=== PATIENT | male | born 2000 | race Caucasian/White ===

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

== ENCOUNTER 2021-01-27 08:08 | Day surgery (SDC) | payer BC, OTHER, SELFPAY ==
[2021-01-21 10:25] VITALS: BMI 17.9
[2021-01-27] VITALS (9 sets, daily range): BP systolic 115–121; BP diastolic 52–63; PULSE 57–74; RESP 16–18; TEMP 36.8–38; O2SAT 95
--- NOTE | 2021-01-27 09:05 | HMH.ANESCL ---
[facility] Anesthesia Checklist - Structural Data Admitted From: Home Planned Operative Procedure/s: dental Consent for Planned Operative Procedure(s) Verified: Yes - Airway Assessment C-Spine Mobility Assessed: Yes TMJ Mobility Assessed: Yes Dentition: Poor Dentition - Neurological Assessment Level of Consciousness: Awake, Alert, Appropriate - Anesthesia Plan Anesthesia Risk discussed: Yes Anesthesia Plan: Verified ASA Class: III Anesthesia Type: General [facility] History I have reviewed the patient's past medical history: Yes (autism) Medical History: Denies:: Cancer, Diabetes Mellitus Type 1, Diabetes Mellitus Type 2, Internal Pacemaker, MRSA *Have you ever received a pneumonia vaccine?: No *Have you received a flu vaccine this season?: No Anesthesia experience/problems:: none Laterality Cases: Bilateral: Other Other Surgeries: No: Pacemaker Amputation: No Fractures: No - *Social History Last grade of school completed: None Smoking Status: Never smoker Alcohol Intake: never Substance Use Type: denies use *Occupational Status:: disabled Housing: house Household Members: family *Travel in the last 8 weeks: None Family Hx:: Unable to obtain
[2021-01-27 09:44] LABS: Coronavirus 19 IgG Antibody Positive (Negative); Coronavirus 19 IgM Antibody Negative (Negative)
--- NOTE | 2021-01-27 12:48 | P.PN_ITS ---
[facility] Anesthesia Record Part I Intake, IV Amount: 1,000 Estimated blood loss (mL): 0 Urine output (mL): 0 Blood Pressure: 120/61 SaO2: 95 Pulse Rate: 70 Respiratory Rate: 16 Temperature: 98.3 F Patient is:: Drowsy, Stable Stable to PACU at:: 12:40
--- NOTE | 2021-01-27 15:26 | P.PCN_ITS ---
Date of procedure: 01/27/21 Date of : 89 Pre-op Diagnosis:: dental decay Post-op diagnosis:: other (restored dental decay) Procedure performed:: The 20, M patient was transported to the [facility] OR pre operative holding room per his mother. In the holding room, an IV was started. The patient was then transported to the operating room where Issac was nasotracheal intubated. Anesthesia was induced and maintained. The patient was draped in the usual manner. 18 intraoral x-rays were taken. The throat was suctioned free of debris. One single moist throat pack was placed in the posterior oral pharynx. A complete intra-oral exam and review of the complete set of x-rays was completed. A Prophy was performed as well. The patient was found to have multiple areas of decay. #12-MOD surfaces, #13-MOD surfaces, #15-MOL surfaces, #28- surfaces, #18-MO surfaces, #19-MOD surfaces, #4-MOD surfaces, #2-MOL surfaces, #3-MODL surfaces, #14-MODL surfaces, #30-MODB surfaces, #31-MODB surfaces. All fillings were restored with B1 white resin flowable and composite material. Checked occlusion and adjusted bite. The patient was given 4 capules, 144mg of Octacaine with Epinephrine 1:100,000 which was 0.3mg for postoperative pain control. Estimated blood loss was nil. The patient tolerated all surgical procedures well and there were no surgical complications. The throat was irrigated and suctioned free of debris. The throat pack was removed. The patient was extubated without complications and taken to the postoperative anesthetic recovery room in satisfactory condition. Surgeon:: Natalya Anthony DMD Waste Disposal Plant Operator(s):: Farrah Reyna HEADING PINNER:: Rodrigo Cleveland Anesthesia: GETA Estimated blood loss (mL): 0 Operative note:: same as procedure performed Disposition: PACU Specimens:: 0 Complications:: none
--- NOTE | 2021-01-28 08:02 | HMH.ANESII ---
[facility] Anesthesia Record Part II Discharge Time: 13:10 Destination: Surgical Day Care (OP Surgery) PACU nurse assessment reviewed?: Yes Patient Condition:: Good Anesthesia Complications:: None Swallowing reflex intact?: Yes Cyanosis?: No Blood Pressure: 118/56 Pulse Rate: 65 Temperature: 98.6 F Mental Status: Alert & Oriented (baseline) Pain level:: 0 Nausea and/or vomitting:: None Intake, IV Amount: 0
[2021-01-28 08:03] VITALS: BP 118/56; PULSE 65; TEMP 37
== END 2021-01-27 13:40 | disposition home or self-care (01) ==
LOC: OR 08:10
PROVIDERS: PCP Family Medicine; Visit Provider Dentist General Practice
PROC: (CPT 41899; principal; 2021-01-27 09:45)
DX: K02.9 Dental caries, unspecified (principal); F43.0 Acute stress reaction; F84.0 Autistic disorder
CPT/HCPCS: 41899; D2160; D2161; D2150; 86328; J2405; J2710

== ENCOUNTER 2025-02-26 08:25 | Day surgery (SDC) | payer OTHER, SELFPAY ==
[2025-02-24 13:06] VITALS: BMI 17.7
[2025-02-26] VITALS (7 sets, daily range): BP systolic 112–122; BP diastolic 71–78; PULSE 64–72; RESP 14–18; TEMP 36.4–38; O2SAT 96–99
--- NOTE | 2025-02-26 09:38 | P.PNANES_ITS ---
[facility] Disclaimer: The information contained in this section may have been updated after the patient was seen, as this information can be updated by other users. Medical History (Updated 02/24/25 @ 13:02 by Amber Acharya RN) Autism Surgical History (Updated 02/24/25 @ 13:05 by Amber Acharya RN) History of dental surgery History of placement of ear tubes Family History (Updated 02/24/25 @ 13:05 by Amber Acharya RN) Other Adopted Social History Smoking Status: Never smoker second hand exposure: No alcohol intake: never substance use type: denies use current occupational status: disabled Travel in the last 8 weeks?: None household members: family housing: house current occupational exposures/hazards: No caffeine: No Have you lived/traveled outside US in past 30 days?: No Contact w/someone who lives/traveled outside US past 30 days?: No Exposure to someone with infectious disease in past 14 days?: No Do you have a fever (greater than 100.4 F or 38 C)?: No Have you tested positive for COVID-19?: No Exposed to someone with COVID-19 in past 14 days?: No Do you have a sore throat?: No Do you have a cough?: No Do you have any weakness?: No Do you have any diarrhea?: No Are you experiencing any unusual bleeding?: No Do you have any muscle aches/pain?: No Do you have any abdominal pain?: No Are you experiencing loss of taste or smell?: No [facility] Anesthesia Checklist Patient Identification Patient Identification: Arm Band Structural Data Admitted From: Home Planned Operative Procedure/s: Dental- Root Canal + Bridge Prep Consent for Planned Operative Procedure(s) Verified: Yes Verified Documents: Surgical Consent NPO Status Verified Time NPO: 00:00 Additional verifications Anesthesia Reactions: No Hx Blood Transfusions: No Blood Transfusion Reaction: No Airway Assessment Mallampati Score:: Class II C-Spine Mobility Assessed: Yes TMJ Mobility Assessed: Yes Dentition: Good Dentition Neurological Assessment Level of Consciousness: Awake, Alert and Follows Commands Anesthesia Plan Anesthesia Risk discussed: Yes Anesthesia Plan: Verified ASA Class: III Anesthesia Type: General
--- NOTE | 2025-02-26 13:56 | EXP.ANES.I ---
[facility] Anesthesia Record Part I Anesthesia Record I Intake, IV Amount: 900 Hydration: Adequate Estimated blood loss (mL): 0 Urine output (mL): 0 Blood Products used (#): none Blood Pressure: 122/71 SaO2: 99 Pulse Rate: 70 Airway Patency: Patent Respiratory Rate: 14 Temperature: 97.5 F Patient is:: Drowsy and Stable Stable to PACU at:: 01:32
--- NOTE | 2025-02-26 13:59 | EXP.ANES.I ---
[facility] Anesthesia Record Part I Anesthesia Record I Intake, IV Amount: 99 Hydration: Adequate Estimated blood loss (mL): 0 Urine output (mL): 0 Blood Products used (#): none Blood Pressure: 122/71 SaO2: 99 Pulse Rate: 70 Airway Patency: Patent Respiratory Rate: 14 Temperature: 97.5 F Patient is:: Drowsy and Stable Stable to PACU at:: 13:52
--- NOTE | 2025-02-26 14:22 | PC.NURSE ---
parents requesting no vital signs to be taken, pt becomes aggitated with blood pressure cuff and pulse ox. pt alert, no s/s of distress, skin pink, warm, dry.
--- NOTE | 2025-02-27 07:47 | EXP.ANES.II ---
[facility] Anesthesia Record Part II Anesthesia Record Part II Discharge Time: 14:22 Destination: Surgical Day Care (OP Surgery) PACU nurse assessment reviewed?: Yes Patient Condition:: Good Anesthesia Complications:: None Swallowing reflex intact?: Yes Airway Patency: Patent Cyanosis?: No Blood Pressure: 117/71 SaO2: 96 Respiratory Rate: 18 Pulse Rate: 69 Temperature: 97.5 F Mental Status: Alert & Oriented Pain level:: 0 Nausea and/or vomitting:: None Intake, IV Amount: 0 Hydration: Adequate
[2025-02-27 07:48] VITALS: BP 117/71; PULSE 69; RESP 18; TEMP 36.4; O2SAT 96
--- NOTE | 2025-02-27 11:44 | P.PCN_ITS ---
Operative Note Date of procedure: 02/26/25 Date of : 89 Pre-op Diagnosis:: #3 tooth periapical radiolueceny and abcess in need of endodontic treatment Post-op diagnosis:: same Procedure performed:: 24 y/o pt presents to [facility] OR for treatment Mx: Dr. Gonzales PCP, no meds, NKDA, PT has autism Procedure: The patient was transported to the [facility] per his mother and father. In the holding room an IV was began. The patient was transported to the operating room where he was nasotracheal intubated. Anesthesia was induced and maintained throughout the procedure without complications; See anesthesia records. The patient was draped in the usual manner, Full mouth digital X-rays were then taken. The throat was suctioned clear and one moist throat pack was placed in the posterior oral pharynx. *#3 RCT, core and crown prep #3 tooth with a raghav apical abscess has endodontic root canal treatment completed today with working lengths as follows palatal root 23mm working length and filled with size 40 cuco percha, Mesial buccal and distal buccal canals has 21mm working lengths and filled with size 35 and BC Sealer was used on the cuco percha points. irrigation was Sodium Hyperchlorite followed by an EDTA endo solution. Then #3 had a core build-up done using etch, tolbert and A2 filtek resin, then #3 tooth had a crown prep completed and an impression done to fabricate a lab crown, then a temporary crown was made and cemented with temporary cement (Temp Tolbert). *Bridge prep #28-#30; #28- abutment, #30-pontic, #31-abutment #28 and #30 were prepped and impressions taken for a three unit bridge to be fabricated in order to restore this pts occlusion on the lower right quadrant as requested by pts mother, A temporary bridge #28-#30 was also cemented today using Temp Tolbert. *Prophy Prophylactic cleaning was completed today using cavitron throughout the entire mouth followed by hand scales. All x-rays and the mouth were examined for any further problems, no further decay or abscesses were detected and all old fillings were in good condition The pt tolerated all surgical procedures well throat pack was removed. Tx per Dr. Anthony completed in the [facility] Anesthesiologist: Benjamin Puri Surgeon:: Natalya Anthony DMD Engineer System Administrator(s):: Elyssa Ivy PRODUCTIVITY ENGINEER:: Other Anesthesia: GETA Estimated blood loss (mL): 0 Operative findings:: 24 y/o pt presents to [facility] OR for treatment Mx: Dr. Gonzales PCP, no meds, NKDA, PT has autism Procedure: The patient was transported to the [facility] per his mother and father. In the holding room an IV was began. The patient was transported to the operating room where he was nasotracheal intubated. Anesthesia was induced and maintained throughout the procedure without complications; See anesthesia records. The patient was draped in the usual manner, Full mouth digital X-rays were then taken. The throat was suctioned clear and one moist throat pack was placed in the posterior oral pharynx. *#3 RCT, core and crown prep #3 tooth with a raghav apical abscess has endodontic root canal treatment completed today with working lengths as follows palatal root 23mm working length and filled with size 40 cuco percha, Mesial buccal and distal buccal canals has 21mm working lengths and filled with size 35 and BC Sealer was used on the cuco percha points. irrigation was Sodium Hyperchlorite followed by an EDTA endo solution. Then #3 had a core build-up done using etch, tolbert and A2 filtek resin, then #3 tooth had a crown prep completed and an impression done to fabricate a lab crown, then a temporary crown was made and cemented with temporary cement (Temp Tolbert). *Bridge prep #28-#30; #28- abutment, #30-pontic, #31-abutment #28 and #30 were prepped and impressions taken for a three unit bridge to be fabricated in order to restore this pts occlusion on the lower right quadrant as requested by pts mother, A temporary bridge #28-#30 was also cemented today using Temp Tolbert. *Prophy Prophylactic cleaning was completed today using cavitron throughout the entire mouth followed by hand scales. All x-rays and the mouth were examined for any further problems, no further decay or abscesses were detected and all old fillings were in good condition The pt tolerated all surgical procedures well throat pack was removed. Tx per Dr. Anthony completed in the [facility] Anesthesiologist: Benjamin Puri Operative note:: 24 y/o pt presents to [facility] OR for treatment Mx: Dr. Gonzales PCP, no meds, NKDA, PT has autism Procedure: The patient was transported to the [facility] per his mother and father. In the holding room an IV was began. The patient was transported to the operating room where he was nasotracheal intubated. Anesthesia was induced and maintained throughout the procedure without complications; See anesthesia records. The patient was draped in the usual manner, Full mouth digital X-rays were then taken. The throat was suctioned clear and one moist throat pack was placed in the posterior oral pharynx. *#3 RCT, core and crown prep #3 tooth with a raghav apical abscess has endodontic root canal treatment completed today with working lengths as follows palatal root 23mm working length and filled with size 40 cuco percha, Mesial buccal and distal buccal canals has 21mm working lengths and filled with size 35 and BC Sealer was used on the cuco percha points. irrigation was Sodium Hyperchlorite followed by an EDTA endo solution. Then #3 had a core build-up done using etch, tolbert and A2 filtek resin, then #3 tooth had a crown prep completed and an impression done to fabricate a lab crown, then a temporary crown was made and cemented with temporary cement (Temp Tolbert). *Bridge prep #28-#30; #28- abutment, #30-pontic, #31-abutment #28 and #30 were prepped and impressions taken for a three unit bridge to be fabricated in order to restore this pts occlusion on the lower right quadrant as requested by pts mother, A temporary bridge #28-#30 was also cemented today using Temp Tolbert. *Prophy Prophylactic cleaning was completed today using cavitron throughout the entire mouth followed by hand scales. All x-rays and the mouth were examined for any further problems, no further decay or abscesses were detected and all old fillings were in good condition The pt tolerated all surgical procedures well throat pack was removed. Tx per Dr. Anthnoy completed in the [facility] Anesthesiologist: Benjamin Puri Disposition: same day Specimens:: none Complications:: none
== END 2025-02-26 14:52 | disposition home or self-care (01) ==
PROVIDERS: PCP Family Medicine; Visit Provider Dentist General Practice
PROC: (CPT 41899; principal; 2025-02-26 10:00)
DX: K04.7 Periapical abscess without sinus (principal); F84.0 Autistic disorder
CPT/HCPCS: 41899; J2250; J2405

== ENCOUNTER 2025-04-02 06:26 | Day surgery (SDC) | payer SELFPAY ==
[2025-04-02] VITALS (8 sets, daily range): BP systolic 100–107; BP diastolic 57–67; PULSE 58–77; RESP 12–18; TEMP 36.1–36.3; O2SAT 98–100; BMI 17.2
--- NOTE | 2025-04-02 07:36 | P.PNANES_ITS ---
[facility] Disclaimer: The information contained in this section may have been updated after the patient was seen, as this information can be updated by other users. Medical History Autism Surgical History History of dental surgery History of placement of ear tubes Family History Other Adopted Social History Smoking Status: Never smoker second hand exposure: No alcohol intake: never substance use type: denies use current occupational status: disabled Travel in the last 8 weeks?: None household members: family housing: house current occupational exposures/hazards: No caffeine: No Have you lived/traveled outside US in past 30 days?: No Contact w/someone who lives/traveled outside US past 30 days?: No Exposure to someone with infectious disease in past 14 days?: No Do you have a fever (greater than 100.4 F or 38 C)?: No Have you tested positive for COVID-19?: No Exposed to someone with COVID-19 in past 14 days?: No Do you have a sore throat?: No Do you have a cough?: No Do you have any weakness?: No Do you have any diarrhea?: No Are you experiencing any unusual bleeding?: No Do you have any muscle aches/pain?: No Do you have any abdominal pain?: No Are you experiencing loss of taste or smell?: No [facility] Anesthesia Checklist Patient Identification Patient Identification: Arm Band and Family Structural Data Admitted From: Home Planned Operative Procedure/s: Dental Consent for Planned Operative Procedure(s) Verified: Yes Verified Documents: Surgical Consent and History and Physical NPO Status Verified Time NPO: 00:00 Additional verifications Patient : No Anesthesia Reactions: No Hx Blood Transfusions: No Blood Transfusion Reaction: No Cephalosporin Allergy: No Previous Colonoscopy: No Airway Assessment Mallampati Score:: Class II C-Spine Mobility Assessed: Yes TMJ Mobility Assessed: Yes Dentition: Poor Dentition Neurological Assessment Level of Consciousness: Awake, Alert, Appropriate and Follows Commands Hx Seizures: No Numbness or tingling in extremities: No Anesthesia Plan Anesthesia Risk discussed: Yes ASA Class: II Anesthesia Type: General Preoperative Comments Pre-Operative Comments: Autism
--- NOTE | 2025-04-02 09:11 | EXP.ANES.I ---
[facility] Anesthesia Record Part I Anesthesia Record I Intake, IV Amount: 900 Hydration: Adequate Estimated blood loss (mL): 15 Urine output (mL): 0 Blood Pressure: 107/57 SaO2: 98 Pulse Rate: 58 Airway Patency: Patent Respiratory Rate: 12 Temperature: 97.3 F Patient is:: Drowsy and Stable Stable to PACU at:: 09:03
--- NOTE | 2025-04-02 12:35 | HMH.ORALP ---
Operative Note Date of procedure: 04/02/25 Date of : 89 Pre-op Diagnosis:: Dental Bridge and Fairview Need Placement Post-op diagnosis:: same Procedure performed:: Seated # 3 [place]view and #28-#30 Bridge Surgeon:: Natalya Anthony DMD Account Services Representative(s):: Ivy Jaramillo FLOWER MAKER:: Other Anesthesia: GETA Estimated blood loss (mL): 0 Operative findings:: Seated #3 crown and #28-#30 Bridge Operative note:: The patient was transported to the [facility] per his mother and father. In the holding room an IV was began. The patient was transported to the operating room where he was nasotracheal intubated. Anesthesia was induced and maintained throughout the procedure without complications; See anesthesia records. The patient was draped in the usual manner,The throat was suctioned clear and one moist throat pack was placed in the posterior oral pharynx. Assessment: Fairview delivery of tooth #3 and Bridge delivery of #28-#30 [place]view Delivery of tooth #3 Removed temporary crown using hemostats. Tried on permanent crown. checked occlusion with articulating paper. Checked margins and contacts. Seated #3 using rely-x cement, cleaned excess cement, flossed. Checked and adjusted occlusion to satisfaction of patient. Took Post op Xray for proper marginal seat and excess cement. Bridge Delivery of #28-#30. Removed temporary crowns using hemostats. Tried on permanent bridge checked occlusion with articulating paper. Checked margins and contacts. Seated Bridge #28-#30 using rely-x cement, cleaned excess cement, flossed. Checked and adjusted occlusion to satisfaction of patient. Took Post op Xray for proper marginal seat and excess cement. The pt tolerated all surgical procedures well throat pack was removed. Tx per Dr. Anthony completed in the [facility] Anesthesiologist: Benjamin Puri Signed Natalya Anthony DMD Disposition: same day Specimens:: none Complications:: none
--- NOTE | 2025-04-03 12:27 | EXP.ANES.II ---
[facility] Anesthesia Record Part II Anesthesia Record Part II Discharge Time: 09:34 Destination: Surgical Day Care (OP Surgery) PACU nurse assessment reviewed?: Yes Patient Condition:: Good Anesthesia Complications:: None Swallowing reflex intact?: Yes Airway Patency: Patent Cyanosis?: No Blood Pressure: 100/66 SaO2: 100 Respiratory Rate: 16 Pulse Rate: 76 Temperature: 97.3 F Mental Status: Alert & Oriented Pain level:: 0 Nausea and/or vomitting:: None Intake, IV Amount: 0 Hydration: Adequate
[2025-04-03 12:28] VITALS: BP 100/66; PULSE 76; RESP 16; TEMP 36.3; O2SAT 100
== END 2025-04-02 10:06 | disposition home or self-care (01) ==
PROVIDERS: PCP Family Medicine; Visit Provider Dentist General Practice
PROC: (CPT D6740; principal; 2025-04-02 07:30)
DX: Z98.811 Dental restoration status (principal)
CPT/HCPCS: J1100; J2250; J2405; J3010